=== PATIENT | male | born 1955 | race Caucasian/White ===

== ENCOUNTER 2024-08-08 07:41 | Day surgery (SDC) | payer MEDICARE ==
[2024-07-26 15:55] LABS: BILIRUBIN,URINE NEGATIVE (Neg); CLARITY,URINE CLEAR (Clear); COLOR,URINE YELLOW (Yellow); GLUCOSE, URINE NEGATIVE (Neg); KETONES,URINE NEGATIVE (Neg); LEUKOCYTE ESTERASE ,URINE NEGATIVE (Neg); NITRITES, URINE NEGATIVE (Neg); OCCULT BLOOD,URINE NEGATIVE (Neg); PROTEIN,URINE NEGATIVE (Neg); UROBILINOGEN,URINE 0.2 E.U/dL (0.2-1.0)
[2024-07-26 15:57] LABS: UA COLLECTION TYPE CLN CATCH MIDSTREAM
[2024-07-26 16:03] LABS: BASOPHILS # (AUTO) 0.1 X10'3 (0-0.2); BASOPHILS % (AUTO) 1.1 % (0-1); EOSINOPHILS # (AUTO) 0.2 X10'3 (0-0.9); EOSINOPHILS % (AUTO) 4.3 % (0-6); LYMPHOCYTES # (AUTO) 1.2 X10'3 (1.1-4.8); LYMPHOCYTES % (AUTO) 25.8 % (21-51); MEAN CORPUSCULAR HEMOGLOBIN 32.7 PG (27.0-31.0); MEAN CORPUSCULAR HGB CONC 33.1 g/dL (33.0-36.5); MEAN CORPUSCULAR VOLUME 98.6 FL (78-98); MEAN PLATELET VOLUME 9.3 FL (7.4-10.4); MONOCYTES # (AUTO) 0.6 X10'3 (0-0.9); MONOCYTES % (AUTO) 12.6 % (2-12); NEUTROPHILS # (AUTO) 2.7 X10'3 (1.8-7.7); NEUTROPHILS % (AUTO) 56.2 % (42-75); PRE OP HEMATOCRIT 42.2 % (42.0-52.0); PRE OP PLATELET COUNT 162 X10'3 (140-440); PRE OP WHITE BLOOD COUNT 4.8 10'3 (4.8-10.8); RED BLOOD COUNT 4.28 X10'6 (4.70-6.10); RED CELL DISTRIBUTION WIDTH 13.4 % (11.5-14.5)
[2024-07-26 16:21] LABS: ALBUMIN 3.8 G/DL (3.4-5.0); ALBUMIN/GLOBULIN RATIO 1.2 (1.1-1.5); ALKALINE PHOSPHATASE 44 IU/L (46-116); BLOOD UREA NITROGEN 22 MG/DL (7-18); BUN/CREATININE RATIO 21.8 (10.0-20.0); CALCIUM 8.3 MG/DL (8.5-10.1); CHLORIDE 104 MMOL/L (99-107); CREATININE 1.01 MG/DL (0.60-1.10); PRE OP ALT 21 U/L (30-65); PRE OP ANION GAP 7 (8-16); PRE OP AST 17 U/L (10-37); PRE OP BILIRUB, TOTAL 0.7 MG/DL (0.0-1.0); PRE OP GLUCOSE 93 MG/DL (70-104); PRE OP POTASSIUM 3.7 MMOL/L (3.4-5.1); PRE OP PROTIME 10.7 SECONDS (9.0-12.0); PRE OP SODIUM 139 MMOL/L (135-145); TOTAL CARBON DIOXIDE 27.9 MMOL/L (24-32); TOTAL PROTEIN 7.1 G/DL (6.4-8.2); eGFR 73 ML/MIN
[2024-08-08] VITALS (28 sets, daily range): BP systolic 101–148; BP diastolic 56–76; PULSE 16–74; RESP 12–68; TEMP 97–98.7; O2SAT 93–100
[~2024-08-08] VITALS: Ht 182.9 cm; Wt 86.6 kg
[~2024-08-08 07:41] MED LIST: GLUC-95 PO; LMEF1TAB2; PRAV40TA3 PO; VITD400T PO
[2024-08-08] MEDS: tranexamic acid inj. 1,000 MG in normal saline IV soln 100ML IV ONE (09:09)
[2024-08-08] MEDS: ringers solution, lacted 1,000 ML IV SCH ×2 (09:09→14:00)
[2024-08-08] MEDS: famotidine 20mg tablet PO ONE (09:09)
[2024-08-08] MEDS: cefazolin 2gm/D5W 100mL 100 ML IV ONE (09:15)
[2024-08-08] MEDS ORDERED: ondansetron/PF 4mg/2ml inj IV PRN ×2 (09:55→14:00)
[2024-08-08] MEDS ORDERED: naloxone 0.4 mg/ml inj IV PRN (09:55)
[2024-08-08] MEDS ORDERED: HYDROcodone/acetaminophen 5mg/325mg tablet PO PRN ×2 (09:55)
[2024-08-08] MEDS: potassium cl 20mEq in 1/2 NS 1,000 ML IV SCH (09:55)
[2024-08-08] MEDS ORDERED: diphenhydrAMINE 25mg capsule PO PRN (09:55)
[2024-08-08] MEDS ORDERED: magnesium hydroxide 30ml (MOM) UD suspension PO PRN (09:55)
[2024-08-08] MEDS ORDERED: acetaminophen 325mg tablet PO PRN (09:55)
[2024-08-08] MEDS ORDERED: bisacodyl 10mg suppository rectal RC PRN (09:55)
[2024-08-08] MEDS: cloNIDine hcl/PF 100mcg/ml inj ONE (10:07)
[2024-08-08] MEDS: vancomycin 1,000mg inj ONE (10:08)
[2024-08-08] MEDS ORDERED: fentaNYL /PF 50mcg/ml 5ml ampule ONE (10:32)
[2024-08-08] MEDS ORDERED: midazolam 1 mg/ML 2ml injection ONE (10:32)
[2024-08-08] MEDS ORDERED: LIDOcaine 1%/PF 5ML 10 MG/ML VIAL ONE (11:02)
[2024-08-08] MEDS ORDERED: rocuronium 10mg/ml inj IV ONE (11:02)
[2024-08-08] MEDS ORDERED: LIDOcaine 2% (20mg/ml) 5ml vial ONE (11:02)
[2024-08-08] MEDS ORDERED: propofol inj 20 ML IV ONE (11:02)
[2024-08-08] MEDS ORDERED: dexamethasone sod phosphate 4mg/ml inj. ONE (11:02)
[2024-08-08] MEDS ORDERED: ROPIVAcaine 0.5% (5mg/ml) 30ml vial ONE (11:02)
[2024-08-08] MEDS ORDERED: glycopyrrolate 0.2mg/ml inj ONE ×2 (11:04→13:12)
[2024-08-08] MEDS ORDERED: ondansetron/PF 4mg/2ml inj ONE (11:59)
[2024-08-08] MEDS ORDERED: 0.9 % SODIUM CHLORIDE 10 ML VIAL ONE (12:00)
[2024-08-08] MEDS ORDERED: ePHEDrine 50MG/ML INJ. ONE (12:00)
[2024-08-08] MEDS: mineral oil 10ml sterile, topical TP ONE (12:01)
[2024-08-08] MEDS ORDERED: neostigmine methylsulfate 1 MG/ML 10ml vial ONE (13:12)
[2024-08-08] MEDS ORDERED: morphine 4 MG/ML inj SYRINge IV PRN (14:00)
[2024-08-08] MEDS ORDERED: labetalol 20mg/4ml (5mg/ml) syringe IV PRN (14:00)
[2024-08-08] MEDS ORDERED: proCHLORperazine 10 MG/2 ml inj IV PRN (14:00)
[2024-08-08] MEDS ORDERED: hydrALAZINE 20mg/ml inj. IV PRN (14:00)
[2024-08-08] MEDS ORDERED: acetaminophen 1,000mg/100ml IV 100 ML IV ONE (14:00)
[2024-08-08] MEDS ORDERED: meperidine/PF 25mg/ml syringe IV PRN ×3 (14:00)
[2024-08-08] MEDS ORDERED: morphine 2 MG/ML inj. syringe IV PRN (14:00)
[2024-08-08] MEDS: cefazolin 2gm/D5W 100mL 100 ML IV SCH (20:11)
[2024-08-09 00:02] VITALS: BP 106/57; PULSE 60; RESP 16; O2SAT 94
[2024-08-09 01:43] VITALS: BP 98/53; PULSE 54; RESP 16; TEMP 96.7; O2SAT 95
[2024-08-09 04:52] VITALS: BP 112/62; PULSE 70; RESP 16; O2SAT 94
[2024-08-09 06:00] VITALS: BP 101/53; PULSE 52; RESP 18; TEMP 96.6; O2SAT 96
[2024-08-09 06:47] LABS: BASOPHILS % (AUTO) 0.2 % (0-1); EOSINOPHILS % (AUTO) 0 % (0-6); HEMATOCRIT 39.4 % (42.0-52.0); HEMOGLOBIN 13.2 g/dl (14.0-17.9); LYMPHOCYTES # (AUTO) 0.6 X10'3 (1.1-4.8); LYMPHOCYTES % (AUTO) 7.2 % (21-51); MEAN CORPUSCULAR HEMOGLOBIN 33.1 PG (27.0-31.0); MEAN CORPUSCULAR HGB CONC 33.5 g/dL (33.0-36.5); MEAN CORPUSCULAR VOLUME 98.8 FL (78-98); MEAN PLATELET VOLUME 10.1 FL (7.4-10.4); MONOCYTES # (AUTO) 1.1 X10'3 (0-0.9); MONOCYTES % (AUTO) 12.1 % (2-12); NEUTROPHILS % (AUTO) 80.5 % (42-75); PLATELET COUNT 140 X10'3 (140-440); RED BLOOD COUNT 3.99 X10'6 (4.70-6.10); RED CELL DISTRIBUTION WIDTH 13.2 % (11.5-14.5); WHITE BLOOD COUNT 8.7 X10'3 (4.5-11.0)
[2024-08-09 07:06] LABS: ALANINE AMINOTRANSFERASE 23 U/L (12-78); ALBUMIN/GLOBULIN RATIO 0.9 (1.1-1.5); ALKALINE PHOSPHATASE 38 IU/L (46-116); ANION GAP 5 (8-16); ASPARTATE AMINO TRANSFERASE 28 U/L (10-37); BILIRUBIN,TOTAL 0.5 MG/DL (0.1-1.0); BLOOD UREA NITROGEN 15 MG/DL (7-18); BUN/CREATININE RATIO 16.3 (10.0-20.0); CALCIUM 8.3 MG/DL (8.5-10.1); CHLORIDE 105 MMOL/L (99-107); CREATININE 0.92 MG/DL (0.60-1.10); GLUCOSE 109 MG/DL (70-104); SODIUM 139 MMOL/L (135-145); TOTAL CARBON DIOXIDE 28.6 MMOL/L (24-32); TOTAL PROTEIN 6.2 G/DL (6.4-8.2); eCRCL 81 ML/MIN; eGFR 81 ML/MIN
[2024-08-09] MEDS: aspirin 325mg tablet PO SCH (07:27)
[2024-08-09] MEDS: pravastatin 40mg tablet PO SCH (07:27)
== END 2024-08-09 10:27 | disposition home or self-care (01) ==
LOC: PAS 07:41 → ORTHO 4S 10:08 → PAS 08-09 10:27
PROVIDERS: ATTEND Specialist
DX: M19.012 Primary osteoarthritis, left shoulder (principal); G89.18 Other acute postprocedural pain; E78.5 Hyperlipidemia, unspecified; Z87.891 Personal history of nicotine dependence; Z79.891 Long term (current) use of opiate analgesic; Z79.899 Other long term (current) drug therapy; Z98.890 Other specified postprocedural states
CPT/HCPCS: 23430; 23472; 36415; 64415; 71046; 73030; 80053; 81003; 82948; 85025; 85610; 85730; 86885; 86900; 86901; 87081; 97110; 97161; 97530; A4565; A4618; A6402; A6455; A7000; C1776; J0690; J0735; J1100; J2001; J2250; J2405; J2704; J2710; J2795; J3010; J3370; J3480; J3490; J7030; J7120; Z7506; Z7508; Z7512; Z7610; 76000; A6449; G0378